=== PATIENT | female | born 1960 | race Caucasian/White ===

== ENCOUNTER 2020-10-27 23:15 | Emergency (ER) | payer OTHER ==
[~2020-10-27] VITALS: Ht 154.9 cm; Wt 106.8 kg
[~2020-10-27 23:15] MED LIST: ACET-3385 PO; ALBU0.212 IH; ALLO100T PO; AMIT10TA6 PO; AMLO5TAB66 PO; ASPI81TA40 PO; AZIT-84 PO; BUSPAR; COMBIH IH; DEPAKOTE PO; DOCU250C16 PO; FAMO20 PO; FLUT110HFA IH; FOLI1TAB15 PO; GABA-531 PO; HYDR12.530 PO; LISI-618 PO; METF-444 PO; METF-910 PO; NABU-139 PO; NITR0.4T SL; OMEP20TA2 PO; ONDA-104 PO; POLY17PO6 PO; SERT50TA PO; SIMV-46 PO; SUCR1TAB PO; TIOT185 IH; TOLT4CAP PO; ZOLOFT
[2020-10-27 23:52] LABS: BASOPHILS % (AUTO) 0.9 % (0.0-2.0); EOSINOPHILS % (AUTO) 0 % (1.0-6.0); HEMATOCRIT 40.9 % (36-46); HEMOGLOBIN 13.3 g/dL (12.0-16.0); LYMPHOCYTES # (AUTO) 2.4 K/uL (1.0-4.8); LYMPHOCYTES % (AUTO) 19.1 % (22.0-44.0); MEAN CORPUSCULAR HGB CONC 32.5 G/dL (31.0-37.0); MEAN CORPUSCULAR VOLUME 86 fL (80-100); MONOCYTES # (AUTO) 0.7 K/uL (0.1-1.0); NEUTROPHILS # (AUTO) 9.3 K/uL (1.8-7.7); PLATELET COUNT (AUTO) 220 K/uL (150-450); RED BLOOD CELL COUNT(AUTO) 4.74 MIL/uL (4.00-5.20); RED CELL DISTRIBUTION WIDTH 14.6 % (11.5-14.5)
[2020-10-28 00:01] LABS: ANION GAP 3 mmol/L (8-16); CALCIUM, TOTAL 8.9 mg/dL (8.8-10.5); CARBON DIOXIDE 30 mmol/L (22-29); CHLORIDE 102 mmol/L (98-107); CREATININE 0.67 mg/dL (0.60-1.30); GLOMERULAR FILTR. RATE CALC > 60 mL/min (>60); GLUCOSE,RANDOM 192 mg/dL (70-110); POTASSIUM 3.7 mmol/L (3.5-5.1); SODIUM SERUM 135 mmol/L (136-145); UREA NITROGEN, BLOOD 11 mg/dL (7-18)
[2020-10-28 00:17] LABS: ALANINE AMINOTRANSFERASE 21 U/L (12-78); ALBUMIN 3.5 g/dL (3.4-5.0); ALKALINE PHOSPHATASE 107 U/L (46-116); ASPARTATE AMINOTRANSFERASE 9 U/L (15-37); BILIRUBIN,TOTAL 0.4 mg/dL (0.1-1.0); HCG,QUANTITATIVE 2 mIU/mL (0-6); LIPASE 44 U/L (73-393); TOTAL PROTEIN, SERUM 7.5 g/dL (6.4-8.2)
[2020-10-28] MEDS ORDERED: IOVERSOL 350 MG/ML 100 ML VIAL ONE (00:29)
[2020-10-28] MEDS ORDERED: SODIUM CHLORIDE 0.9% 100 ML ONE (00:29)
[2020-10-28] MEDS ORDERED: MAG HYDROX/AL HYDROX/SIMETH 30 ML SUSP UDCUP PO ONE (00:30)
[2020-10-28] MEDS ORDERED: SODIUM CHLORIDE 0.9% 500 ML IV ONE (00:30)
[2020-10-28] MEDS ORDERED: ONDANSETRON HCL 4 MG/2 ML VIAL IVP ONE (00:30)
[2020-10-28] MEDS ORDERED: ACETAMINOPHEN 500 MG TABLET PO ONE (00:30)
[2020-10-28] MEDS ORDERED: FAMOTIDINE 10 MG/ML 2 ML VIAL IVP ONE (00:30)
[2020-10-28] MEDS ORDERED: MORPHINE SULFATE 2 MG/ML SYRINGE IVP ONE ×2 (00:30→02:15)
[2020-10-28 01:27] LABS: APPEARANCE,URINE CLEAR (CLEAR); BILIRUBIN,URINE NEGATIVE (NEGATIVE); GLUCOSE, URINE (UA) NEGATIVE (NEGATIVE); KETONES,URINE NEGATIVE (NEGATIVE); LEUKOCYTE ESTERASE ,URINE NEGATIVE (NEGATIVE); NITRATE,URINE NEGATIVE (NEGATIVE); OCCULT BLOOD,URINE MODERATE (NEGATIVE); PH,URINE 6.5 (5.0-8.0); PROTEIN,URINE NEGATIVE (NEGATIVE); UROBILINOGEN,URINE 0.2 mg/dL (<=1.0)
[2020-10-28] MEDS ORDERED: KETOROLAC TROMETHAMINE 30 MG/ML VIAL IVP ONE (01:45)
[2020-10-28] MEDS ORDERED: MetroNIDAZOLE 250 MG TABLET PO ONE (02:00)
[2020-10-28] MEDS ORDERED: CIPROFLOXACIN HCL 250 MG TABLET PO ONE (02:00)
[2020-10-28 02:01] LABS: BACTERIA,URINE None Seen /HPF (None Seen); SQUAMOUS EPITHELIAL CELL,UR Rare /LPF (None Seen); WBC,URINE None Seen /HPF (0-5)
[2020-10-28 02:43] VITALS: BP 172/85
== END 2020-10-28 02:43 | disposition home or self-care (01) ==
LOC: EMS 23:17
DX: K57.92 Diverticulitis of intestine, part unspecified, without perforation or abscess without bleeding (principal); N20.0 Calculus of kidney; F41.9 Anxiety disorder, unspecified; J44.9 Chronic obstructive pulmonary disease, unspecified; K59.00 Constipation, unspecified; I10 Essential (primary) hypertension; E11.9 Type 2 diabetes mellitus without complications; E78.00 Pure hypercholesterolemia, unspecified; K21.9 Gastro-esophageal reflux disease without esophagitis; M10.9 Gout, unspecified; Z86.73 Personal history of transient ischemic attack (TIA), and cerebral infarction without residual deficits; Z87.891 Personal history of nicotine dependence; Z79.899 Other long term (current) drug therapy; Z79.82 Long term (current) use of aspirin
CPT/HCPCS: 36415; 74177; 80053; 81001; 82962; 83690; 84702; 85025; 96361; 96374; 96375; 96376; 99285; J1885; J2270; J2405; J3490; J7040; J7050; Q9967

== ENCOUNTER 2023-06-20 11:32 | Emergency (ER) | payer OTHER ==
[~2023-06-20] VITALS: Ht 162.6 cm; Wt 102.3 kg
[~2023-06-20 11:32] MED LIST changes: -AMIT10TA6 PO; -AMLO5TAB66 PO; +APIX5TAB PO; -ASPI81TA40 PO; -AZIT-84 PO; +CARV6 PO; -COMBIH IH; -DOCU250C16 PO; -FAMO20 PO; -FLUT110HFA IH; -FOLI1TAB15 PO; -GABA-531 PO; -HYDR12.530 PO; -LISI-618 PO; -METF-444 PO; -NABU-139 PO; -NITR0.4T SL; -ONDA-104 PO; -SERT50TA PO; -SUCR1TAB PO; -TOLT4CAP PO; -ZOLOFT
[2023-06-20] MEDS ORDERED: GLIP5TAB12 PO (11:39)
[2023-06-20] MEDS ORDERED: INSLAN SQ (11:39)
[2023-06-20 11:45] VITALS: TEMP 98.9
[2023-06-20 12:23] LABS: COVID AG,FIA SOURCE NASAL SWAB
[2023-06-20 12:46] LABS: INFLUENZA TYPE A NEGATIVE FOR TYPE A (NEGATIVE); INFLUENZA TYPE B NEGATIVE FOR TYPE B (NEGATIVE)
[2023-06-20 13:00] VITALS: BP 153/92; PULSE 89; RESP 20
[2023-06-20] MEDS ORDERED: HYDROCODONE/ACETAMINOPHEN 5-325 MG TABLET PO ONE (13:00)
[2023-06-20] MEDS ORDERED: GUAIFDM PO (13:01)
[2023-06-20] MEDS ORDERED: NIRM1TAB4 PO ×2 (13:01→13:43)
[2023-06-20] MEDS ORDERED: HYDR-4072 PO (13:01)
[2023-06-20] MEDS ORDERED: BENZ-227 PO (13:01)
[2023-06-20] MEDS ORDERED: CETI10TA58 PO (14:15)
[2023-06-20] MEDS ORDERED: CHOL500045 PO (14:15)
[2023-06-20] MEDS ORDERED: TOLT4CAP27 PO (14:15)
[2023-06-20] MEDS ORDERED: BUSP15 PO (14:15)
[2023-06-20] MEDS ORDERED: SERT-440 PO (14:15)
[2023-06-20] MEDS ORDERED: IPRA4AER IH (14:15)
[2023-06-20] MEDS ORDERED: HYDR100T28 PO (14:15)
[2023-06-20] MEDS ORDERED: DIVA-112 PO (14:15)
[2023-06-20] MEDS ORDERED: ZOLP-280 PO (14:15)
[2023-06-20] MEDS ORDERED: ACET-2895 PO (14:15)
[2023-06-20] MEDS ORDERED: NIFE90TA91 PO (14:15)
[2023-06-20] MEDS ORDERED: GABA-1181 PO (14:15)
== END 2023-06-20 13:40 | disposition home or self-care (01) ==
LOC: EMS 11:32
DX: U07.1 COVID-19 (principal); J06.9 Acute upper respiratory infection, unspecified; I48.91 Unspecified atrial fibrillation; F31.9 Bipolar disorder, unspecified; E11.9 Type 2 diabetes mellitus without complications; I10 Essential (primary) hypertension; Z98.890 Other specified postprocedural states
CPT/HCPCS: 82962; 87804; 99283

== ENCOUNTER 2024-04-24 16:40 | Emergency (ER) | payer OTHER ==
[~2024-04-24] VITALS: Ht 157.5 cm; Wt 105.9 kg
[~2024-04-24 16:40] MED LIST changes: +ACET-2895 PO; -ACET-3385 PO; -ALBU0.212 IH; +BENZ-227 PO; +BUSP15 PO; -BUSPAR; +CETI10TA58 PO; +CHOL500045 PO; -DEPAKOTE PO; +DIVA-112 PO; +GABA-1181 PO; +GLIP5TAB16 PO; +GUAIFDM PO; +HYDR-4072 PO; +HYDR100T15 PO; +INSLAN SQ; +IPRA4AER IH; -METF-910 PO; +NIFE90TA91 PO; +NIRM1TAB4 PO; -POLY17PO6 PO; +SERT-440 PO; +TOLT4CAP27 PO; +ZOLP-280 PO
[2024-04-24 16:59] VITALS: BP 144/83; PULSE 93; RESP 14; TEMP 98.3
[2024-04-24] MEDS: CEPHALEXIN MONOHYDRATE 500 MG CAPSULE PO ONE (18:41)
[2024-04-24] MEDS: BACITRACIN 0.9 GM PACKET OINTMENT TP ONE (18:41)
[2024-04-24] MEDS ORDERED: CEPH-558 PO (19:32)
[2024-04-24] MEDS ORDERED: BACI28.410 TP (19:32)
[2024-04-24 19:50] LABS: GLUCOMETER DEV NAME(LOC) ER.7; GLUCOSE,POINT OF CARE 182 MG/DL (70-110)
[2024-04-24 19:50] LABS: GLUCOMETER DEV NAME(LOC) ER.7; GLUCOSE,POINT OF CARE 150 MG/DL (70-110)
== END 2024-04-24 19:52 | disposition home or self-care (01) ==
LOC: EMS 16:42
DX: L03.116 Cellulitis of left lower limb (principal); L03.115 Cellulitis of right lower limb; E11.9 Type 2 diabetes mellitus without complications; I10 Essential (primary) hypertension; Z88.2 Allergy status to sulfonamides
CPT/HCPCS: 82962; 99283; Z7502; Z7610

== ENCOUNTER 2024-09-03 10:53 | Inpatient (IN) | payer MEDICARE, OTHER ==
[~2024-09-03] VITALS: Ht 154.9 cm; Wt 107.8 kg
[~2024-09-03 10:53] MED LIST changes: -ALLO100T PO; +BACI28.410 TP; -BENZ-227 PO; -CETI10TA58 PO; -CHOL500045 PO; +FURO20TA5 PO; -GABA-1181 PO; -GUAIFDM PO; -HYDR-4072 PO; -HYDR100T15 PO; -INSLAN SQ; -NIFE90TA91 PO; -NIRM1TAB4 PO; -SIMV-46 PO; -TOLT4CAP27 PO; -ZOLP-280 PO
[2024-09-03] MEDS ORDERED: SEMA14TA2 PO (11:04)
[2024-09-03] MEDS ORDERED: BUME1TAB6 PO (11:04)
[2024-09-03] MEDS ORDERED: SACU1TAB PO (11:04)
[2024-09-03] MEDS ORDERED: OMEP20TA20 PO (11:04)
[2024-09-03] MEDS ORDERED: GLIP-383 PO (11:04)
[2024-09-03] MEDS ORDERED: DAPA10TA PO (11:04)
[2024-09-03] MEDS ORDERED: CETI10TA58 PO (11:04)
[2024-09-03] MEDS ORDERED: CHOL500045 PO (11:04)
[2024-09-03] MEDS ORDERED: TOLT4CAP27 PO (11:04)
[2024-09-03 11:57] LABS: BASOPHILS % (AUTO) 1.2 % (0.0-2.0); EOSINOPHILS % (AUTO) 2.4 % (1.0-6.0); HEMATOCRIT 42.1 % (36-46); HEMOGLOBIN 13.6 g/dL (12.0-16.0); LYMPHOCYTES # (AUTO) 1.9 K/uL (1.0-4.8); LYMPHOCYTES % (AUTO) 24.9 % (22.0-44.0); MEAN CORPUSCULAR HEMOGLOBIN 27.3 pg (26.0-34.0); MEAN CORPUSCULAR HGB CONC 32.4 G/dL (31.0-37.0); MEAN CORPUSCULAR VOLUME 84 fL (80-100); MONOCYTES # (AUTO) 0.4 K/uL (0.1-1.0); MONOCYTES % (AUTO) 5.2 % (2.0-9.0); NEUTROPHILS % (AUTO) 66.3 % (40.0-70.0); PLATELET COUNT (AUTO) 176 K/uL (150-450); RED CELL DISTRIBUTION WIDTH 16.2 % (11.5-14.5); WHITE BLOOD COUNT (AUTO) 7.5 K/uL (4.5-11.0)
[2024-09-03 11:59] LABS: ANION GAP 4 mmol/L (8-16); CALCIUM, TOTAL 8.8 mg/dL (8.8-10.5); CARBON DIOXIDE 26 mmol/L (22-29); CHLORIDE 104 mmol/L (98-107); CREATININE 0.85 mg/dL (0.60-1.30); GLOMERULAR FILTR. RATE CALC > 60 mL/min (>60); GLUCOSE,RANDOM 252 mg/dL (70-110); POTASSIUM 4.1 mmol/L (3.5-5.1); SODIUM SERUM 134 mmol/L (136-145); UREA NITROGEN, BLOOD 16 mg/dL (7-18)
[2024-09-03 12:03] LABS: ALANINE AMINOTRANSFERASE 12 U/L (12-78); ALBUMIN 3.3 g/dL (3.4-5.0); ALKALINE PHOSPHATASE 91 U/L (46-116); ASPARTATE AMINOTRANSFERASE 13 U/L (15-37); BILIRUBIN,TOTAL 0.5 mg/dL (0.1-1.0); PROTHROMBIN TIME 10.9 SEC (9.4-11.6); TOTAL PROTEIN, SERUM 7.2 g/dL (6.4-8.2); TROPONIN I-HIGH SENSITIVITY 11 ng/L (<51)
[2024-09-03 12:05] LABS: B-TYPE NATRIURETIC PEPTIDE 371 pg/mL (0-100)
[2024-09-03] MEDS ORDERED: IBUP-2070 PO (12:16)
[2024-09-03] MEDS ORDERED: HYDR100T15 PO (12:18)
[2024-09-03] MEDS ORDERED: CARV25TA32 PO (12:18)
[2024-09-03] MEDS ORDERED: GABA-1181 PO (12:18)
[2024-09-03] MEDS: NITROGLYCERIN 2% (1 GM=INCH) OINTMENT PACKET TP ONE (12:38)
[2024-09-03] MEDS: FUROSEMIDE 40 MG/4 ML VIAL IVP ONE (12:38)
[2024-09-03 13:36] LABS: APPEARANCE,URINE CLEAR (CLEAR); BILIRUBIN,URINE NEGATIVE (NEGATIVE); COLOR,URINE COLORLESS (YELLOW); GLUCOSE, URINE (UA) 150-200 mg/dL (NEGATIVE); KETONES,URINE NEGATIVE (NEGATIVE); LEUKOCYTE ESTERASE ,URINE NEGATIVE (NEGATIVE); NITRATE,URINE NEGATIVE (NEGATIVE); OCCULT BLOOD,URINE NEGATIVE (NEGATIVE); PROTEIN,URINE NEGATIVE (NEGATIVE); UROBILINOGEN,URINE <=1.0 mg/dL (<=1.0)
[2024-09-03 13:46] LABS: BACTERIA,URINE None Seen /HPF (None Seen); RBC,URINE None Seen /HPF (0-2); WBC,URINE None Seen /HPF (0-5)
[2024-09-03 14:40] VITALS: BP 149/93; PULSE 109; RESP 18; TEMP 98.7; O2SAT 98
[2024-09-03] MEDS ORDERED: IBUPROFEN 600 MG TABLET PO PRN (17:15)
[2024-09-03] MEDS ORDERED: BISACODYL 10 MG RECTAL RECTAL SUPPOSITORY PR PRN ×2 (17:15)
[2024-09-03] MEDS ORDERED: ONDANSETRON HCL 4 MG/2 ML VIAL IVP PRN (17:15)
[2024-09-03] MEDS ORDERED: ALBUTEROL SULFATE 2.5 MG/0.5 ML NEB SOLUTION NEB PRN (17:15)
[2024-09-03] MEDS ORDERED: ZOLPIDEM TARTRATE 5 MG TABLET PO PRN ×2 (17:15)
[2024-09-03] MEDS ORDERED: MAGNESIUM HYDROXIDE SUSPENSION 30 ML UDCUP PO PRN ×2 (17:15)
[2024-09-03] MEDS ORDERED: ACETAMINOPHEN 325 MG TABLET PO PRN (17:15)
[2024-09-03] MEDS ORDERED: IPRATROPIUM BROMIDE 0.5 MG/2.5 ML NEB SOLUTION NEB PRN (17:15)
[2024-09-03 20:44] VITALS: BP 140/81; PULSE 105; RESP 19; TEMP 97.7; O2SAT 95
[2024-09-03] MEDS ORDERED: BUMETANIDE 1 MG TABLET PO SCH (21:00)
[2024-09-03] MEDS: HYDROCODONE/ACETAMINOPHEN 5-325 MG TABLET PO PRN (21:26)
[2024-09-03] MEDS: SACUBITRIL/VALSARTAN 24-26 MG TABLET PO SCH (21:27)
[2024-09-03] MEDS: APIXABAN 5 MG TABLET PO SCH (21:27)
[2024-09-03] MEDS: CARVEDILOL 25 MG TABLET PO SCH (21:27)
[2024-09-03] MEDS: DIVALPROEX SODIUM 500 MG DR TABLET PO SCH (21:28)
[2024-09-03] MEDS: BUMETANIDE 0.25 MG/ML 4 ML VIAL IVP SCH (21:28)
[2024-09-03] MEDS: BusPIRone HCL 15 MG TABLET PO SCH (21:28)
[2024-09-03] MEDS: GABAPENTIN 300 MG CAPSULE PO SCH (21:28)
[2024-09-03] MEDS: HydrALAZINE HCL 50 MG TABLET PO SCH (21:30)
[2024-09-03] MEDS: IPRATROPIUM BROMIDE 0.5 MG/2.5 ML NEB SOLUTION NEB PRN (22:31)
[2024-09-03] MEDS: ALBUTEROL SULFATE 2.5 MG/0.5 ML NEB SOLUTION NEB PRN (22:31)
[2024-09-03 22:33] VITALS: PULSE 75; RESP 24; O2SAT 98
[2024-09-03 22:34] VITALS: PULSE 75; RESP 24; O2SAT 98
[2024-09-03 22:43] VITALS: PULSE 81; RESP 20; O2SAT 99
[2024-09-04] VITALS (7 sets, daily range): BP systolic 97–137; BP diastolic 70–95; PULSE 76–109; RESP 18–19; TEMP 97.2–97.9; O2SAT 95–97
[2024-09-04] MEDS ORDERED: DEXTROSE 50%-WATER 25 GM/50 ML SYRINGE IVP PRN (03:45)
[2024-09-04] MEDS: GlipiZIDE ER 2.5 MG ER TABLET PO SCH (05:35)
[2024-09-04] MEDS: ONDANSETRON HCL 4 MG/2 ML VIAL IVP PRN (05:49)
[2024-09-04] MEDS: PANTOPRAZOLE SODIUM 40 MG DR TABLET PO SCH (08:28)
[2024-09-04] MEDS: CETIRIZINE HCL 10 MG TABLET PO SCH (08:28)
[2024-09-04] MEDS: SERTRALINE HCL 100 MG TABLET PO SCH (08:28)
[2024-09-04] MEDS: CHOLECALCIFEROL (VIT D3) 5,000 [125 MCG] UNITS CAPSULE PO SCH (08:29)
[2024-09-04] MEDS: TOLTERODINE TARTRATE 2 MG ER CAPSULE PO SCH (08:29)
[2024-09-04] MEDS: DAPAGLIFLOZIN PROPANEDIOL 5 MG TABLET PO SCH (08:30)
[2024-09-04] MEDS ORDERED: PANTOPRAZOLE SODIUM 40 MG DR TABLET PO SCH (09:00)
[2024-09-04] MEDS ORDERED: OMEPRAZOLE 20 MG CAPSULE PO SCH (09:00)
[2024-09-04] MEDS ORDERED: MISC MED-CONVERTED FROM AMBULATORY (Semaglutide (Rybelsus) 14 MG) PO SCH (09:00)
[2024-09-04] MEDS: TIOTROPIUM BROMIDE 18 MCG/INH HANDIHALER [5] IH SCH (09:58)
[2024-09-05 00:18] VITALS: BP 90/58; PULSE 90; RESP 18; TEMP 97.7
[2024-09-05 05:03] VITALS: BP 113/57; PULSE 64; RESP 18; TEMP 97.6
[2024-09-05 07:26] VITALS: BP 113/68; PULSE 87; RESP 18; TEMP 98; O2SAT 98
[2024-09-05] MEDS: MORPHINE SULFATE 2 MG/ML SYRINGE IVP PRN (08:02)
[2024-09-05 12:03] VITALS: BP 110/60; PULSE 80; RESP 20; TEMP 98; O2SAT 98
[2024-09-05 15:21] VITALS: BP 101/70; PULSE 97; RESP 19; TEMP 97.7; O2SAT 93
[2024-09-05 21:17] VITALS: BP 99/56; PULSE 91; RESP 19; TEMP 98; O2SAT 98
[2024-09-06] VITALS (9 sets, daily range): BP systolic 68–123; BP diastolic 42–91; PULSE 65–98; RESP 18–19; TEMP 97.1–98.2; O2SAT 96–99
[2024-09-06] MEDS: SODIUM CHLORIDE 0.9% 250 ML IV ONE (05:12)
[2024-09-06 06:33] LABS: BASOPHILS % (AUTO) 0.6 % (0.0-2.0); EOSINOPHILS % (AUTO) 2.3 % (1.0-6.0); HEMATOCRIT 40.6 % (36-46); HEMOGLOBIN 13.2 g/dL (12.0-16.0); LYMPHOCYTES # (AUTO) 4.3 K/uL (1.0-4.8); MEAN CORPUSCULAR HEMOGLOBIN 27.7 pg (26.0-34.0); MEAN CORPUSCULAR HGB CONC 32.5 G/dL (31.0-37.0); MEAN CORPUSCULAR VOLUME 85 fL (80-100); MONOCYTES # (AUTO) 0.9 K/uL (0.1-1.0); MONOCYTES % (AUTO) 7.6 % (2.0-9.0); NEUTROPHILS # (AUTO) 5.8 K/uL (1.8-7.7); NEUTROPHILS % (AUTO) 51.5 % (40.0-70.0); PLATELET COUNT (AUTO) 180 K/uL (150-450); RED BLOOD CELL COUNT(AUTO) 4.77 MIL/uL (4.00-5.20); RED CELL DISTRIBUTION WIDTH 16.3 % (11.5-14.5); WHITE BLOOD COUNT (AUTO) 11.3 K/uL (4.5-11.0)
[2024-09-06 06:34] LABS: CALCIUM, TOTAL 8.6 mg/dL (8.8-10.5); CREATININE 1.14 mg/dL (0.60-1.30)
[2024-09-06] MEDS: ATORVASTATIN CALCIUM 20 MG TABLET PO SCH (08:14)
[2024-09-06 11:46] LABS: ABG BASE EXCESS 3.6 mmol/L (-2.0-3.0); ABG CARBOXYHEMOGLOBIN 0.6 % (0.5-1.5); ABG HCO3 26.9 mmol/L (21.0-28.0); ABG METHEMOGLOBIN 0.2 % (0.0-1.5); ABG OXYGEN CONTENT 17.9 mL/dL (15.0-23.0); ABG OXYGEN SATURATION 90.9 % (94.0-98.0); ABG OXYHEMOGLOBIN 90.2 % (94.0-98.0); ABG PCO2 45 mmHg (32.0-45.0); ABG PH 7.411 (7.350-7.450); ABG TOTAL HEMOGLOBIN 14.1 G/dL (12.0-16.0); ALLEN TEST, BLOOD GAS Positive; PO2, ARTERIAL BG 59.1 mmHg (83.0-108.0); SITE, BLOOD GAS RT RADIAL; SOURCE, BLOOD GAS ARTERIAL; TEMPERATURE, FAHRENHEIT, BG 98.6 FAHREN (96.0-98.6)
[2024-09-06 11:47] LABS: ABG A-A DIFF O2 36.3 mmHg (10-20.0); O2 DEVICE,BLOOD GAS ROOM AIR (ROOM AIR)
[2024-09-06] MEDS: HydrALAZINE HCL 25 MG TABLET PO SCH (16:00)
[2024-09-06] MEDS: ACETAMINOPHEN 325 MG TABLET PO PRN (20:36)
[2024-09-06] MEDS: CARVEDILOL 6.25 MG TABLET PO SCH (20:37)
[2024-09-07] VITALS (8 sets, daily range): BP systolic 104–129; BP diastolic 51–96; PULSE 86–107; RESP 18–20; TEMP 97.7–98.5; O2SAT 93–98
[2024-09-07 00:21] LABS: GLUCOMETER DEV NAME(LOC) 5N.2C; GLUCOSE,POINT OF CARE 128 MG/DL (70-110)
[2024-09-07 08:45] LABS: ANION GAP 7 mmol/L (8-16); CALCIUM, TOTAL 8.7 mg/dL (8.8-10.5); CARBON DIOXIDE 31 mmol/L (22-29); CHLORIDE 96 mmol/L (98-107); GLOMERULAR FILTR. RATE CALC > 60 mL/min (>60); GLUCOSE,RANDOM 125 mg/dL (70-110); POTASSIUM 4.2 mmol/L (3.5-5.1); SODIUM SERUM 134 mmol/L (136-145); UREA NITROGEN, BLOOD 34 mg/dL (7-18)
[2024-09-07 19:41] LABS: GLUCOMETER DEV NAME(LOC) 5S.1C; GLUCOSE,POINT OF CARE 128 MG/DL (70-110)
[2024-09-08 04:34] VITALS: BP 100/73; PULSE 79; RESP 19; TEMP 97.9; O2SAT 96
[2024-09-08 06:59] LABS: ANION GAP 6 mmol/L (8-16); CALCIUM, TOTAL 8.6 mg/dL (8.8-10.5); CARBON DIOXIDE 34 mmol/L (22-29); CHLORIDE 94 mmol/L (98-107); CREATININE 0.76 mg/dL (0.60-1.30); GLOMERULAR FILTR. RATE CALC > 60 mL/min (>60); GLUCOSE,RANDOM 85 mg/dL (70-110); POTASSIUM 4.3 mmol/L (3.5-5.1); SODIUM SERUM 134 mmol/L (136-145); UREA NITROGEN, BLOOD 30 mg/dL (7-18)
[2024-09-08 07:41] VITALS: BP 116/73; PULSE 108; RESP 20; TEMP 98.2; O2SAT 98
[2024-09-08 08:28] VITALS: PULSE 102
[2024-09-08 11:54] VITALS: BP 112/68; PULSE 92; RESP 16; TEMP 98.2; O2SAT 93
[2024-09-08] MEDS ORDERED: ATOR20TA65 PO (16:06)
[2024-09-08] MEDS ORDERED: CARV6 PO (16:06)
[2024-09-08 16:08] VITALS: BP 124/62; PULSE 90; RESP 18; TEMP 98.1; O2SAT 95
[2024-09-09 07:36] LABS: GLUCOMETER DEV NAME(LOC) 5N.1D; GLUCOSE,POINT OF CARE 105 MG/DL (70-110)
[2024-09-09 07:40] LABS: GLUCOMETER DEV NAME(LOC) 5N.1D; GLUCOSE,POINT OF CARE 105 MG/DL (70-110)
== END 2024-09-08 18:50 | disposition home or self-care (01) | DRG 140 ==
LOC: EMS 10:53 → EDH 12:37 → 5S 14:40
PROVIDERS: ADMIT Hospitalist; ATTEND Hospitalist
DX: J44.1 Chronic obstructive pulmonary disease with (acute) exacerbation (principal); J96.01 Acute respiratory failure with hypoxia; I50.23 Acute on chronic systolic (congestive) heart failure; E44.0 Moderate protein-calorie malnutrition; I11.0 Hypertensive heart disease with heart failure; I95.9 Hypotension, unspecified; E87.1 Hypo-osmolality and hyponatremia; I48.91 Unspecified atrial fibrillation; E11.9 Type 2 diabetes mellitus without complications; F31.9 Bipolar disorder, unspecified; J30.2 Other seasonal allergic rhinitis; M10.9 Gout, unspecified; M54.50 Low back pain, unspecified; E66.01 Morbid (severe) obesity due to excess calories; Z82.49 Family history of ischemic heart disease and other diseases of the circulatory system; Z83.3 Family history of diabetes mellitus; Z88.2 Allergy status to sulfonamides; Z88.3 Allergy status to other anti-infective agents; Z68.41 Body mass index [BMI] 40.0-44.9, adult
CPT/HCPCS: 36600; 71045; 80048; 80053; 81001; 82805; 82962; 83880; 84484; 85025; 85610; 85730; 93005; 94640; 97112; 97116; 97162; 97165; 97530; 97535; 99285; J1940; J2270; J2405; J3490; J7050; 36415-L1; 36415-TC; J7613